=== PATIENT | male | born 1960 | race Caucasian/White ===

== ENCOUNTER 2019-09-02 10:17 | Emergency (ER) | payer MEDICAID, OTHER ==
[~2019-09-02] VITALS: Ht 180.3 cm; Wt 86.2 kg
[2019-09-02 10:24] VITALS: BP 157/93
== END 2019-09-02 10:39 | disposition home or self-care (01) ==
LOC: ER 10:32
DX: T14.8XXA Other injury of unspecified body region, initial encounter (principal); M79.18 Myalgia, other site; V49.9XXA Car occupant (driver) (passenger) injured in unspecified traffic accident, initial encounter; Y93.89 Activity, other specified; Y92.89 Other specified places as the place of occurrence of the external cause; Y99.8 Other external cause status